=== PATIENT | male | born 1985 ===

== ENCOUNTER 2017-10-09 07:49 | Day surgery (SDC) | payer BC ==
[~2017-10-09] VITALS: Ht 170.2 cm; Wt 68.8 kg
== END 2017-10-09 10:16 | disposition home or self-care (01) ==
LOC: ORSCSDS 07:49
PROVIDERS: Otolaryngology
PROC: 0CBPXZZ Excision of Tonsils, External Approach (ICD-10-PCS; principal; 2017-10-09 09:00)
DX: J35.01 Chronic tonsillitis (principal)
CPT/HCPCS: 88304; J0330; J1100; J2250; J3010; J7120